=== PATIENT | male | born 1985 | race Caucasian/White ===

== ENCOUNTER → 2023-08-05 | Outpatient (CLI) | payer OTHER ==
[~2023-08-05] MED LIST: CEPH500 PO; CLON.2 PO; PERM5TC TOP; SULTRIDS PO
== END | disposition home or self-care (01) ==
LOC: LAB 17:19 → LAB SHORT 17:19
DX: S81.802A Unspecified open wound, left lower leg, initial encounter (principal); L08.9 Local infection of the skin and subcutaneous tissue, unspecified
CPT/HCPCS: 87070; 87075; 87077; 87186; 87205

== ENCOUNTER 2023-08-26 00:48 | Day surgery (SDC) | payer OTHER | END 2023-08-26 22:53 | disposition home or self-care (01) | LOC: WOUND 00:48 | DX: S81.802A Unspecified open wound, left lower leg, initial encounter (principal); X58.XXXA Exposure to other specified factors, initial encounter; I87.2 Venous insufficiency (chronic) (peripheral); Z87.891 Personal history of nicotine dependence; Z88.1 Allergy status to other antibiotic agents | CPT/HCPCS: A9270; G0463 ==

== ENCOUNTER 2023-09-02 02:47 | Day surgery (SDC) | payer OTHER | END 2023-09-02 23:05 | disposition home or self-care (01) | LOC: WOUND 02:47 | DX: L97.822 Non-pressure chronic ulcer of other part of left lower leg with fat layer exposed (principal); S81.802D Unspecified open wound, left lower leg, subsequent encounter; X58.XXXD Exposure to other specified factors, subsequent encounter | CPT/HCPCS: A9270; G0463 ==

== ENCOUNTER 2023-09-09 03:11 | Day surgery (SDC) | payer OTHER | END 2023-09-09 23:05 | disposition home or self-care (01) | LOC: WOUND 03:11 | DX: L97.822 Non-pressure chronic ulcer of other part of left lower leg with fat layer exposed (principal); I87.2 Venous insufficiency (chronic) (peripheral); S81.802D Unspecified open wound, left lower leg, subsequent encounter | CPT/HCPCS: A9270 ==

== ENCOUNTER 2023-09-16 03:38 | Day surgery (SDC) | payer OTHER | END 2023-09-16 22:53 | disposition home or self-care (01) | LOC: WOUND 03:38 | DX: L97.822 Non-pressure chronic ulcer of other part of left lower leg with fat layer exposed (principal); L51.1 Stevens-Johnson syndrome; S81.802D Unspecified open wound, left lower leg, subsequent encounter; I87.2 Venous insufficiency (chronic) (peripheral); X58.XXXD Exposure to other specified factors, subsequent encounter | CPT/HCPCS: A9270; G0463 ==

== ENCOUNTER 2023-09-23 03:29 | Day surgery (SDC) | payer OTHER | END 2023-09-23 23:13 | disposition home or self-care (01) | LOC: WOUND 03:29 | DX: L97.822 Non-pressure chronic ulcer of other part of left lower leg with fat layer exposed (principal); I87.2 Venous insufficiency (chronic) (peripheral); S81.802D Unspecified open wound, left lower leg, subsequent encounter; X58.XXXD Exposure to other specified factors, subsequent encounter | CPT/HCPCS: A9270; G0463 ==

== ENCOUNTER 2023-09-30 02:01 | Day surgery (SDC) | payer OTHER | END 2023-09-30 22:56 | disposition home or self-care (01) | LOC: WOUND 02:01 | DX: L97.822 Non-pressure chronic ulcer of other part of left lower leg with fat layer exposed (principal); I87.2 Venous insufficiency (chronic) (peripheral); S81.801A Unspecified open wound, right lower leg, initial encounter; S81.802A Unspecified open wound, left lower leg, initial encounter; I86.8 Varicose veins of other specified sites | CPT/HCPCS: 93970; A9270; G0463 ==

== ENCOUNTER 2023-10-09 05:18 | Day surgery (SDC) | payer OTHER | END 2023-10-09 22:59 | disposition home or self-care (01) | LOC: WOUND 05:18 | DX: S81.802D Unspecified open wound, left lower leg, subsequent encounter (principal); I87.2 Venous insufficiency (chronic) (peripheral); X58.XXXD Exposure to other specified factors, subsequent encounter | CPT/HCPCS: G0463 ==

== ENCOUNTER 2023-10-16 08:00 | Day surgery (SDC) | payer OTHER | END 2023-10-16 23:59 | disposition home or self-care (01) | LOC: WOUND 08:00 | DX: L97.822 Non-pressure chronic ulcer of other part of left lower leg with fat layer exposed (principal); L51.1 Stevens-Johnson syndrome; I87.2 Venous insufficiency (chronic) (peripheral); S81.802D Unspecified open wound, left lower leg, subsequent encounter; X58.XXXD Exposure to other specified factors, subsequent encounter | CPT/HCPCS: A9270; G0463 ==

== ENCOUNTER 2023-10-18 03:10 | Day surgery (SDC) | payer OTHER | END 2023-10-18 23:12 | disposition home or self-care (01) | LOC: WOUND 03:10 | DX: I87.2 Venous insufficiency (chronic) (peripheral) (principal); S81.802D Unspecified open wound, left lower leg, subsequent encounter; X58.XXXD Exposure to other specified factors, subsequent encounter ==

== ENCOUNTER 2023-10-24 01:25 | Day surgery (SDC) | payer OTHER | END 2023-10-24 22:58 | disposition home or self-care (01) | LOC: WOUND 01:25 | DX: S81.802D Unspecified open wound, left lower leg, subsequent encounter (principal) ==

== ENCOUNTER 2023-10-31 08:00 | Day surgery (SDC) | payer OTHER | END 2023-10-31 23:59 | disposition home or self-care (01) | LOC: WOUND 08:00 | DX: I87.2 Venous insufficiency (chronic) (peripheral) (principal); L97.822 Non-pressure chronic ulcer of other part of left lower leg with fat layer exposed; S81.802D Unspecified open wound, left lower leg, subsequent encounter ==

== ENCOUNTER 2023-11-07 04:40 | Day surgery (SDC) | payer OTHER | END 2023-11-07 23:09 | disposition home or self-care (01) | LOC: WOUND 04:40 | DX: L97.822 Non-pressure chronic ulcer of other part of left lower leg with fat layer exposed (principal); S81.802D Unspecified open wound, left lower leg, subsequent encounter; X58.XXXD Exposure to other specified factors, subsequent encounter; I87.2 Venous insufficiency (chronic) (peripheral) ==

== ENCOUNTER 2023-11-14 01:41 | Day surgery (SDC) | payer OTHER | END 2023-11-14 23:26 | disposition home or self-care (01) | LOC: WOUND 01:41 | DX: L97.822 Non-pressure chronic ulcer of other part of left lower leg with fat layer exposed (principal); I87.2 Venous insufficiency (chronic) (peripheral); S81.802D Unspecified open wound, left lower leg, subsequent encounter | CPT/HCPCS: A9270 ==

== ENCOUNTER 2023-11-21 01:54 | Day surgery (SDC) | payer OTHER | END 2023-11-21 23:00 | disposition home or self-care (01) | LOC: WOUND 01:54 | DX: L97.822 Non-pressure chronic ulcer of other part of left lower leg with fat layer exposed (principal); S81.802D Unspecified open wound, left lower leg, subsequent encounter; X58.XXXD Exposure to other specified factors, subsequent encounter; I87.2 Venous insufficiency (chronic) (peripheral) | CPT/HCPCS: G0463 ==

== ENCOUNTER 2023-11-28 01:45 | Day surgery (SDC) | payer OTHER | END 2023-11-28 22:57 | disposition home or self-care (01) | LOC: WOUND 01:45 | PROC: 5A02115 Assistance with Cardiac Output using Pulsatile Compression, Intermittent (ICD-10-PCS; principal; 2023-11-28) | DX: L97.822 Non-pressure chronic ulcer of other part of left lower leg with fat layer exposed (principal); I87.2 Venous insufficiency (chronic) (peripheral); S81.802D Unspecified open wound, left lower leg, subsequent encounter ==

== ENCOUNTER 2023-12-05 03:07 | Day surgery (SDC) | payer OTHER ==
[2023-12-05] MEDS ORDERED: Lidocaine HCl 4% Cream 5 GM ONE (08:42)
== END 2023-12-05 22:49 | disposition home or self-care (01) ==
LOC: WOUND 03:07
DX: L97.822 Non-pressure chronic ulcer of other part of left lower leg with fat layer exposed (principal); S81.802D Unspecified open wound, left lower leg, subsequent encounter; X58.XXXD Exposure to other specified factors, subsequent encounter; I87.2 Venous insufficiency (chronic) (peripheral)
CPT/HCPCS: A9270